=== PATIENT | female | born 1985 | race Caucasian/White ===

== ENCOUNTER 2017-06-08 08:49 | Emergency (ER) | payer OTHER ==
[2017-04-24 11:20] VITALS: Ht 161.9 cm; Wt 68.0 kg
[~2017-06-08] VITALS: Ht 161.9 cm; Wt 68.0 kg
[~2017-06-08 08:49] MED LIST: ACE3 PO; HYDR2TAB4 PO; IBUP800T37 PO
--- NOTE | 2017-06-08 09:20 | ER Report ---
History and Physical Time Seen By MD: 09:18 Hx. of Stated Complaint: CHILLS, BODY ACHES, LOSS OF APPETITE. HPI/ROS CHIEF COMPLAINT: Fever, body aches, chills HISTORY OF PRESENT ILLNESS: Patient is a 32-year-old female with no contributory past medical history who presents to the emergency department for evaluation of approximately 24 hours of subjective chills possible fever and generalized body aches headache. Patient is also feeling weak and run down. She denies nasal congestion or sinus pressure she denies sore throat. She denies chest pain or shortness of breath. Patient denies abdominal pain, nausea, vomiting or diarrhea. Patient denies any rashes. Patient is 6 weeks from a vaginal delivery. She denies any pelvic pain. She states that her lochia stopped yesterday. She denies any other abnormal vaginal discharge including pus or bleeding. She does have an ill contact with an older son at home. He had some sniffles and cough. This has since resolved. Patient did not receive a flu shot this year. REVIEW OF SYSTEMS: Respiratory: No cough, no dyspnea. Cardiovascular: No chest pain, no palpitations. Gastrointestinal: No vomiting, no abdominal pain. Musculoskeletal: Generalized body aches, headache Allergies: Coded Allergies: No Known Drug Allergies (Unverified , 07/26/15) Home Meds Active Scripts Ibuprofen (IBUPROFEN) 800 Mg Tablet, 1 TAB PO Q8H, #30 TAB 0 Refills Take with food every 8 hours. Prov:ALDAIR FLOOD MD 04/24/17 Hydromorphone Hcl (HYDROMORPHONE HCL) 2 Mg Tablet, 2-4 MG PO Q4H for PAIN, #20 TAB 0 Refills Prov:ALDAIR FLOOD MD 04/24/17 Past Medical/Surgical History 6 weeks, no other significant past medical history Hx Smoking: No Smoking Status: Never Smoker Exposure to Second Hand Smoke?: No Constitutional Vital Sign - Last 24 Hours 06/08/17 06/08/17 06/08/17 06/08/17 08:49 08:56 08:56 09:00 Temp 98.1 Pulse ??? 125 Resp 18 B/P (MAP) 116/84 116/84 (95) 106/71 (83) Pulse Ox 91 O2 Delivery Room Air 06/08/17 06/08/17 06/08/17 06/08/17 09:04 09:19 09:30 09:34 Pulse 115 105 101 B/P (MAP) 100/73 (82) Pulse Ox 90 90 90 06/08/17 06/08/17 06/08/17 06/08/17 09:49 10:00 10:04 10:19 Pulse 105 103 ??? B/P (MAP) 96/73 (81) Pulse Ox 90 90 88 06/08/17 06/08/17 10:20 10:23 Temp 98.8 B/P (MAP) 101/72 (82) Physical Exam General Appearance: The patient is alert, has no immediate need for airway protection and no current signs of toxicity. Eyes: Pupils equal and round no injection. Respiratory: Chest is non tender, lungs are clear to auscultation. Cardiac: regular rate and rhythm Gastrointestinal: Abdomen is soft and non tender, no masses, bowel sounds normal. Musculoskeletal: Neck: Neck is supple and non tender. Extremities have full range of motion and are non tender. Skin: No rashes or lesions. Medical Decision Making Data Points Laboratory Hematology Test 06/08/17 08:59 Influenza Virus Type A (PCR) Negative (NEGATIVE) Influenza Virus Type B (PCR) Negative (NEGATIVE) Chemistry Test 06/08/17 08:59 Influenza Virus Type A (PCR) Negative (NEGATIVE) Influenza Virus Type B (PCR) Negative (NEGATIVE) ED Course/Re-evaluation ED Course 06/08/2017 10:12:12 am influenza screen is negative at this point. I had an approximate 5 minute conversation with the patient with regard to her suspected diagnosis. I did explain this still could represent influenza despite the fact of a negative screen. Further explained this could be a viral syndrome at is nonspecific. I doubt the patient has a chest infection she has no cough no productive sputum and no discomfort. She further has no abdominal symptoms including nausea vomiting diarrhea or any abdominal pain. Patient adamantly denies any vaginal discharge including blood pus or any pelvic discomfort. Patient's heart rate has dropped to 10 5 bpm at the time of this discussion. I did offer some IV pain medications fluids and some routine blood work to include CBC and electrolytes versus discharge home with close follow-up if symptoms worsen and instructions to continue Tylenol and Motrin to push fluids and to return immediately to the emergency department if symptoms worsen or persist or she documents a fever at home or other new symptom. Patient opted for the latter and she will be discharged home at this time. Decision to Disposition Date: Jun 08, 2017 Decision to Disposition Time: 10:13 Depart Departure Latest Vital Signs Vital Signs Date Time Temp Pulse Resp B/P (MAP) Pulse Ox O2 Delivery O2 Flow Rate FiO2 06/08/17 10:23 98.8 06/08/17 10:20 101/72 (82) 06/08/17 10:19 ??? 88 06/08/17 08:56 18 Room Air Impression: Primary Impression: Viral syndrome Condition: Condition Unchanged Disposition: HOME OR SELF-CARE Referrals: JOSHUA GILBERT MD (PCP) 2 Days If symptoms persist Departure Forms: ER Transition Record, Medications Reconciliation, Patient Portal Information Patient Instructions: Viral Syndrome (DC) Additional Instructions: Continue Motrin and Tylenol as directed. If he developed fever at home or new or worsening symptoms he should be checked by her primary care provider or come to the emergency department for further evaluation and testing. KAREN CARLSON MD Jun 08, 2017 09:20
[2017-06-08 10:20] VITALS: BP 101/72
== END 2017-06-08 10:23 | disposition home or self-care (01) ==
LOC: ER 09:16
DX: B34.9 Viral infection, unspecified (principal)
CPT/HCPCS: 87502; 99282

== ENCOUNTER 2017-07-31 01:38 | Day surgery (SDC) | payer OTHER ==
[2017-04-24 11:20] VITALS: Ht 162.6 cm; Wt 65.3 kg
[2017-07-31] VITALS (7 sets, daily range): BP systolic 97–109; BP diastolic 68–84
[~2017-07-31] VITALS: Ht 162.6 cm; Wt 65.3 kg
[~2017-07-31 01:38] MED LIST changes: +PREN-148 PEG
[2017-07-31] MEDS ORDERED: ROPIVACAINE 0.5% 20 ML VIAL ONE (07:23)
[2017-07-31] MEDS ORDERED: MIDAZOLAM 2 MG/2 ML VIAL IVP ONE (08:15)
[2017-07-31] MEDS ORDERED: LIDOCAINE/SOD BICARB 8.4% SYR ID ONE (08:15)
[2017-07-31] MEDS ORDERED: NORMOSOL R SOLN(*) 1000 ML BAG 1,000 ML IV PRN (08:15)
[2017-07-31] MEDS ORDERED: FAMOTIDINE 20 MG TAB PO ONE (08:15)
[2017-07-31] MEDS ORDERED: LIDOCAINE MPF 1% 5 ML VIAL ONE (10:31)
[2017-07-31] MEDS ORDERED: PROPOFOL EMUL(*) 10MG/ML 20 ML 20 ML ONE (10:31)
[2017-07-31] MEDS ORDERED: DEXAMETHASONE SOD PHOS 10MG/ML ONE (10:31)
[2017-07-31] MEDS ORDERED: fentaNYL CITR 100 MCG/2 ML AMP ONE (10:31)
[2017-07-31] MEDS ORDERED: MIDAZOLAM 2 MG/2 ML VIAL ONE (10:31)
[2017-07-31] MEDS ORDERED: ONDANSETRON 4 MG/2 ML VIAL ONE (10:31)
[2017-07-31] MEDS ORDERED: SUGAMMADEX SOD 500 MG/5 ML SDV ONE (10:36)
[2017-07-31] MEDS ORDERED: GELATIN SPONGE SZ 100 ONE (11:09)
[2017-07-31] MEDS ORDERED: GELATIN SPONGE 12-7MM ONE (11:10)
[2017-07-31] MEDS ORDERED: DOCU-416 PO (11:37)
[2017-07-31] MEDS ORDERED: OXYC-854 PO (11:37)
--- NOTE | 2017-07-31 11:39 | Short(Outpt) Discharge Summary ---
Discharge Summary Reason for Hosp/Final Diag: (1) Anal fissure Status: Chronic Hospital Course & Plan: LIS completed without problems. Departure Discharge to: Home, Self Care Discharge Instructions Home Meds Active Scripts Docusate Sodium (COLACE) 100 Mg Capsule, 1 CAP PO BID, #30 CAPSULE 0 Refills Prov:ALDAIR CASTANEDA MD 07/31/17 Oxycodone Hcl/Acet 5/325 Mg (ENDOCET 5-325 TABLET) 1 Each Tablet, 1-2 TAB PO Q4H Y for PAIN, #30 TAB 0 Refills Prov:ALDAIR CASTANEDA MD 07/31/17 Reported Medications Vit W-Ca,Fe,FA(<1 mg) ( Formula) 1 Each Tablet, 1 TAB PEG QDAY 06/27/17 Follow up Referrals: General Surgery - 08/13/17 @ Surgery, General with Aldair Castaneda Md You have a follow up appointment scheduled with Dr. Castaneda on 08/13/17, at 2: 00pm. Diet: Regular Activity: As Tolerated Special Instructions: I packed a piece of gelfoam in your anal canal and you will likely evacuate it into the toilet within 24 hours of surgery, it will look like blood and clots in the toilet. This is normal and you should be alarmed by this. You can take hot baths in addition to the pain pills for pain control. ALDAIR CASTANEDA MD Jul 31, 2017 11:39
--- NOTE | 2017-07-31 11:44 | Post Operative Progress Note ---
Post Operative Progress Note Date: Jul 31, 2017 Time: 11:40 Surgeon: Koki Dictation number: [id number] Anesthesia: LMA by Dr. Mann Pre-Op Diagnosis: Chronic anal fissure Post-Op Diagnosis: JEANETTE Findings: Anterior midline anal fissure Procedure(s): LIS Specimen Removed:(May be N/A): None Complications: None Fluids: See anesthesia record Estimated Blood Loss: Minimal Date OP Note Dictated: Jul 31, 2017 Time OP Note Dictated: 11:40 ALDAIR CASTANEDA MD Jul 31, 2017 11:44
[2017-07-31] MEDS ORDERED: IBUPROFEN 800 MG TAB PO ONE (13:05)
--- NOTE | 2017-07-31 19:33 | OPERATIVE REPORT 1 ---
EVENT DATE: July 31, 2017 SURGEON: Raymond Telles MD ANESTHESIOLOGIST: Abdlukadir Mann MD ANESTHESIA: LMA. PREOPERATIVE DIAGNOSIS Chronic anal fissure. POSTOPERATIVE DIAGNOSIS Chronic anal fissure. PROCEDURE PERFORMED Lateral internal sphincterotomy. COMPLICATIONS None. CONDITION Stable. BLOOD LOSS Minimal. INDICATIONS This is a 32-year-old female who presented to my office with bright red blood per rectum and pain with defecation. On exam, she had an anterior midline anal fissure. She was requesting a lateral internal sphincterotomy. DESCRIPTION OF PROCEDURE The patient was brought to the operating room and placed supine on the operating table. LMA anesthesia was administered, and her legs were placed in candy cane stirrups. Her perianal region was prepped and draped in a sterile fashion. A timeout was completed. I used an anal speculum and palpated the intersphincteric groove on the left lateral side of her anus. I then made a 1 cm long radial incision over the groove and then used a hemostat to develop a plane between the internal and external sphincter muscles. Once I had the internal sphincter for over 1.5 cm, I used electrocautery and divided the internal sphincter muscle in a hemostatic fashion. I then injected the whole area around the incision with 0.5% ropivacaine plain and closed the incision with running 3-0 chromic sutures. I packed Gelfoam rolled up in the anal canal, and then her legs were taken down from the candy cane stirrups, and she was placed in mesh panties. She was then awakened, LMA removed, and transported to the recovery room in stable condition having tolerated the procedure without any apparent problems. SHAHID
== END 2017-07-31 12:44 | disposition home or self-care (01) ==
LOC: OR 01:38
PROVIDERS: ATTEND Surgery
DX: K60.1 Chronic anal fissure (principal)
CPT/HCPCS: 46080; 81025; J1100; J2001; J2250; J2405; J2704; J2795; J3010